=== PATIENT | male | born 1975 | race African-American/Black ===

== ENCOUNTER 2021-05-22 12:33 | Emergency (ER) | payer BC ==
[~2021-05-22] VITALS: Ht 170.2 cm; Wt 131.5 kg
[2021-05-22] MEDS ORDERED: TETRACAINE HCL 0.5% OPTH SOLN 4 ML BTL OP ONE (13:00)
[2021-05-22] MEDS ORDERED: FLUORESCEIN SOD(OPTH) 1 MG STRP OP ONE (13:00)
[2021-05-22] MEDS ORDERED: IBUPROFEN 600 MG TAB PO NR (13:30)
[2021-05-22] MEDS ORDERED: ERYTHROMYCIN (OPTH) 3.5 GM OINT OP ONE (13:30)
== END 2021-05-22 13:57 | disposition home or self-care (01) ==
LOC: ER 12:45
DX: S05.12XA Contusion of eyeball and orbital tissues, left eye, initial encounter (principal); W22.8XXA Striking against or struck by other objects, initial encounter; I10 Essential (primary) hypertension
CPT/HCPCS: 99283